=== PATIENT | female | born 1965 | race Caucasian/White ===

== ENCOUNTER 2020-04-30 08:23 | Outpatient (CLI) | payer BC ==
--- NOTE | 2020-04-30 10:22 | ULT ---
RIGHT [facility] ULTRAS[facility]: DATE: 04/30/2020. COMPARISON: None. HISTORY: Right upper quadrant pain. TECHNIQUE: Multiplanar, rothman scale, sonographic imaging of the right upper quadrant provided. FINDINGS: Pancreas appears grossly unremarkable. No focal liver lesion is identified. The common bile duct me asures approximately 6 mm, upper limits of normal. There are numerous nonmobile nonshadowing foci wi thin the gallbladder which could represent tiny sludge balls, polyps, and/or noncalcified stones adhe rent to the gallbladder wall. The precinct commanding officer reports a positive Calzada's sign. The right kidney measured 11.6 cm in craniocaudal dimension and demonstrates no stone, hydronephrosis , or mass. IMPRESSION: Subcentimeter nonshadowing echogenic foci within the gallbladder as detailed above. Common bile duct is upper limits of normal in size. The precinct commanding officer reports a positive Calzada's sign which is of unc ertain significance. If there is clinical concern for acute cholecystitis, followup hepatobiliary sc an advised. CODE T
== END 2020-04-30 08:24 | disposition home or self-care (01) ==
LOC: BICULT 08:23
PROVIDERS: ATTEND Nurse Practitioner
DX: R10.11 Right upper quadrant pain (principal); R93.2 Abnormal findings on diagnostic imaging of liver and biliary tract; R19.8 Other specified symptoms and signs involving the digestive system and abdomen
CPT/HCPCS: 76705

== ENCOUNTER 2025-06-05 16:24 | Observation (INO) | payer OTHER ==
[2025-06-05 18:02] VITALS: BMI 25.9
[2025-06-05] MEDS: PNEUMOC 20-VAL CONJ-DIP CRM/PF 0.5 ML SYRINGE IM ONE (18:37)
[2025-06-05] MEDS ORDERED: Ondansetron PF 4 MG/2 ML Vial IVP PRN (19:20)
[2025-06-06] MEDS ORDERED: hydrALAZINE 20 MG/ML VIAL SLOW IVP PRN (00:24)
[2025-06-06] MEDS: Acetaminophen 325 MG TAB PO PRN (00:33)
[2025-06-06 04:10] LABS: Anion Gap 12 mmol/L (10-20); BUN (Urea Nitrogen) 7 mg/dL (9.8-20.1); Calc. Creatinine Clearance 101 mL/min (70-130); Calcium 9.0 mg/dL (7.8-10.44); Carbon Dioxide 26 mmol/L (22-29); Cardiac Risk 2.7 (Less than 4.5); Chloride 99 mmol/L (98-107); Cholesterol 164 mg/dl (< 200 Desired); Glucose 92 mg/dL (70-105); HDL Cholesterol 60 mg/dL (>60 Neg Risk); LDL Cholesterol, Calculated 86 mg/dL; Potassium 4.0 mmol/L (3.5-5.1); Sodium 133 mmol/L (136-145); Triglycerides 90 mg/dL (Less than 150)
[2025-06-06 04:21] LABS: #Basophils 0.05 10x3/uL (0.0-0.2); #Eosinophils 0.04 10x3/uL (0.0-0.7); #Monocytes 0.49 10x3/uL (0.11-0.59); #Neutrophils 3.21 10x3/uL (1.40-6.50); %Basophils 0.8 % (0.0-1.0); %Eosinophils 0.7 % (0.0-10.0); %Lymphocytes 36.0 % (21.0-51.0); %Monocytes 8.2 % (0.0-10.0); %Neutrophils 53.8 % (42.0-75.0); Hematocrit 44.6 % (36.0-47.0); Hemoglobin 15.7 g/dL (12.0-16.0); Mean Corpuscular Hemoglobin 33.5 pg (27.0-31.0); Mean Corpuscular Volume 95.3 fL (78.0-98.0); Platelet Count 79 10x3/uL (130-400); Red Blood Cell (RBC) Count 4.68 mill/uL (4.20-5.40); White Blood Cell (WBC) Count 5.97 10x3/uL (4.8-10.8)
[2025-06-06] MEDS: Enoxaparin 40 MG (0.4 mL) SYRINGE SC SCH (09:01)
[2025-06-06 14:37] VITALS: BMI 25.9
[2025-06-06 16:12] VITALS: BP 179/98; TEMP 98.1
== END 2025-06-06 19:30 | disposition home health service (06) ==
LOC: 2SE 17:26
PROVIDERS: ADMIT Internal Medicine; ATTEND Internal Medicine
DX: R53.1 Weakness (principal); G51.0 Bell's palsy; I10 Essential (primary) hypertension; E03.9 Hypothyroidism, unspecified; D75.1 Secondary polycythemia; F17.200 Nicotine dependence, unspecified, uncomplicated; Z90.89 Acquired absence of other organs; Z88.6 Allergy status to analgesic agent; Z88.0 Allergy status to penicillin; Z88.8 Allergy status to other drugs, medicaments and biological substances; Z79.890 Hormone replacement therapy; Z79.899 Other long term (current) drug therapy
CPT/HCPCS: 36415; 70553; 76376; 80048; 80061; 83036; 84443; 85025; 96372; G0378; J1650